=== PATIENT | female | born 1990 | race Caucasian/White ===

== ENCOUNTER 2022-08-28 09:41 | Outpatient (CLI) | payer BC | END 2022-08-28 09:42 | disposition home or self-care (01) | LOC: CSHLAB 09:41 | PROVIDERS: ATTEND Obstetrics & Gynecology | DX: Z01.812 Encounter for preprocedural laboratory examination (principal); Z20.822 Contact with and (suspected) exposure to COVID-19 | CPT/HCPCS: 85014; 85018; 85049; 86780; 86850; 86900; 86901; 87340; U0002 ==

== ENCOUNTER 2022-08-31 05:27 | Inpatient (IN) | payer BC ==
[2022-08-31 06:17] VITALS: BMI 50.8
[2022-08-31] MEDS ORDERED: hydrALAZINE 20 MG/ML VIAL SLOW IVP PRN ×2 (06:40→11:06)
[2022-08-31] MEDS ORDERED: Bicitra 30 ML UDCUP PO PRN (06:40)
[2022-08-31] MEDS ORDERED: Promethazine HCl 25 MG/ML VIAL IM PRN ×2 (06:40→07:20)
[2022-08-31] MEDS ORDERED: Ondansetron PF 4 MG/2 ML Vial IVP PRN ×2 (06:40→07:20)
[2022-08-31] MEDS ORDERED: Famotidine/PF 20 mg/2ml Vial SLOW IVP PRN (06:40)
[2022-08-31] MEDS ORDERED: CEFAZOLIN 2 GM in Sodium Chloride 0.9% 100 ML IVPB SCH (06:45)
[2022-08-31] MEDS ORDERED: Lactated Ringer's 1,000 ML IV SCH (06:45)
[2022-08-31] MEDS ORDERED: NS w/ Oxytocin 30 units 500 ML IV SCH ×2 (06:45→11:06)
[2022-08-31] MEDS ORDERED: Ondansetron PF 4 MG/2 ML Vial ONE (07:02)
[2022-08-31] MEDS ORDERED: Fentanyl 100 MCG/2 ML VIAL ONE (07:02)
[2022-08-31] MEDS ORDERED: Dexamethasone 4 mg/ml Vial ONE (07:02)
[2022-08-31] MEDS ORDERED: Morphine PF 10 MG/10 ML VIAL ONE (07:02)
[2022-08-31] MEDS ORDERED: Oxytocin 10 UNITS/ML VIAL ONE ×2 (07:03→08:13)
[2022-08-31] MEDS ORDERED: Phenylephrine 10 MG/ML VIAL ONE (07:03)
[2022-08-31] MEDS ORDERED: diphenhydrAMINE 50 MG/ML VIAL IVP PRN (07:20)
[2022-08-31] MEDS ORDERED: Naloxone HCl 0.4 mg/ml Vial IV PRN (07:20)
[2022-08-31] MEDS ORDERED: Moisturizing Cream (Eucerin) 113 GM JAR TOP PRN (07:20)
[2022-08-31] MEDS ORDERED: Ondansetron HCl/PF 4 MG/2 ML Vial IVP PRN (07:20)
[2022-08-31] MEDS ORDERED: Promethazine HCl 25 MG SUPP PR PRN (07:20)
[2022-08-31] MEDS ORDERED: Ketorolac Tromethamine 30 MG/ML VIAL IVP PRN (07:20)
[2022-08-31] MEDS ORDERED: Naloxone HCl 0.4 mg/ml Vial IVP PRN ×2 (07:20)
[2022-08-31] MEDS ORDERED: Fentanyl 100 MCG/2 ML VIAL SLOW IVP PRN (07:20)
[2022-08-31] MEDS ORDERED: Meperidine HCl/PF 25 MG/ML VIAL SLOW IVP PRN (07:20)
[2022-08-31] MEDS ORDERED: HYDROmorphone 2 MG/ML VIAL SLOW IVP PRN (07:20)
[2022-08-31] MEDS ORDERED: Ketorolac Tromethamine 30 MG/ML VIAL IVP SCH (07:30)
[2022-08-31] MEDS ORDERED: Communication Order-Pharmacy FS SCH (07:30)
[2022-08-31] MEDS ORDERED: ePHEDrine Sulfate 50 MG/10 ML VIAL ONE (08:25)
[2022-08-31] MEDS ORDERED: Lanolin Ointment 7 GM TUBE TOP PRN (11:06)
[2022-08-31] MEDS ORDERED: Boostrix 0.5 ML (Tdap) VIAL (>/=7 yrs of age) IM ONE (11:06)
[2022-08-31] MEDS ORDERED: diphenhydrAMINE 25 MG CAP PO PRN (11:06)
[2022-08-31] MEDS ORDERED: Bisacodyl 10 MG SUPP PR PRN (11:06)
[2022-08-31] MEDS ORDERED: Prenatal Vitamin 1 TAB PO SCH (11:15)
[2022-08-31] MEDS ORDERED: Docusate 100 MG CAP PO SCH (11:15)
[2022-08-31] MEDS ORDERED: Ferrous Sulfate 325 MG TAB PO SCH (11:15)
[2022-08-31] MEDS ORDERED: Ibuprofen 800 MG TAB PO SCH (14:00)
[2022-08-31] MEDS: Ondansetron PF 4 MG/2 ML Vial IVP PRN (15:05)
[2022-08-31] MEDS: Ketorolac Tromethamine 30 MG/ML VIAL IVP PRN (16:47)
[2022-08-31] MEDS: Ferrous Sulfate 325 MG TAB PO SCH (21:28)
[2022-08-31] MEDS: Docusate 100 MG CAP PO SCH (21:28)
[2022-09-01 04:11] LABS: Hemoglobin 7.7 g/dL (12.0-15.5); Mean Corpuscular HGB CONC 32.9 g/dL (32.0-36.0); Mean Corpuscular Hemoglobin 31.6 pg (27.0-33.0); Mean Corpuscular Volume 95.9 fl (81.6-98.3); Mean Platelet Volume 11.1 fl (7.4-10.4); Platelet Count 192 10x3/uL (150-450); RBC Distribution Width 13.2 % (11.5-14.5); Red Blood Cell (RBC) Count 2.44 10x6/uL (3.90-5.03); White Blood Cell (WBC) Count 11.5 10x3/uL (3.5-10.5)
[2022-09-01] MEDS: HYDROcodone/Acetaminophen 5/325 mg Tablet PO PRN ×3 (05:18→18:39)
[2022-09-01] MEDS: Simethicone Chewable 80 MG TAB PO PRN (05:19)
[2022-09-01] MEDS: Ketorolac Tromethamine 30 MG/ML VIAL IVP PRN ×3 (06:06→21:21)
[2022-09-01] MEDS: Ferrous Sulfate 325 MG TAB PO SCH ×2 (08:16→21:21)
[2022-09-01] MEDS: Docusate 100 MG CAP PO SCH ×2 (08:17→21:21)
[2022-09-01] MEDS: Prenatal Vitamin 1 TAB PO SCH (08:17)
[2022-09-02] MEDS: HYDROcodone/Acetaminophen 5/325 mg Tablet PO PRN ×3 (05:45→21:19)
[2022-09-02] MEDS: Prenatal Vitamin 1 TAB PO SCH (08:36)
[2022-09-02] MEDS: Docusate 100 MG CAP PO SCH ×2 (08:36→21:19)
[2022-09-02] MEDS: Ferrous Sulfate 325 MG TAB PO SCH ×2 (08:37→21:19)
[2022-09-02 08:50] LABS: Hemoglobin 6.5 g/dL (12.0-15.5)
[2022-09-02] MEDS: Ondansetron PF 4 MG/2 ML Vial IVP PRN (12:41)
[2022-09-03] MEDS: Ketorolac Tromethamine 30 MG/ML VIAL IVP PRN (04:34)
[2022-09-03] MEDS: Simethicone Chewable 80 MG TAB PO PRN ×4 (04:40→21:30)
[2022-09-03] MEDS: Ferrous Sulfate 325 MG TAB PO SCH ×2 (09:29→21:30)
[2022-09-03] MEDS: HYDROcodone/Acetaminophen 5/325 mg Tablet PO PRN ×4 (09:29→21:30)
[2022-09-03] MEDS: Prenatal Vitamin 1 TAB PO SCH (09:29)
[2022-09-03] MEDS: Docusate 100 MG CAP PO SCH ×2 (09:29→21:30)
[2022-09-03 09:36] LABS: Hemoglobin 6.7 g/dL (12.0-15.5); Mean Corpuscular HGB CONC 32.1 g/dL (32.0-36.0); Mean Corpuscular Hemoglobin 31.5 pg (27.0-33.0); Mean Corpuscular Volume 98.1 fl (81.6-98.3); Mean Platelet Volume 10.4 fl (7.4-10.4); Platelet Count 161 10x3/uL (150-450); RBC Distribution Width 14.6 % (11.5-14.5); Red Blood Cell (RBC) Count 2.13 10x6/uL (3.90-5.03); White Blood Cell (WBC) Count 8.2 10x3/uL (3.5-10.5)
[2022-09-03] MEDS: Ibuprofen 800 MG TAB PO SCH ×2 (13:19→21:30)
[2022-09-04] MEDS: Ibuprofen 800 MG TAB PO SCH (05:32)
[2022-09-04] MEDS: HYDROcodone/Acetaminophen 5/325 mg Tablet PO PRN (05:32)
[2022-09-04 07:45] LABS: Hemoglobin 7.7 g/dL (12.0-15.5); Mean Corpuscular Hemoglobin 31.7 pg (27.0-33.0); Mean Corpuscular Volume 95.9 fl (81.6-98.3); Platelet Count 157 10x3/uL (150-450); RBC Distribution Width 14.8 % (11.5-14.5); Red Blood Cell (RBC) Count 2.43 10x6/uL (3.90-5.03); White Blood Cell (WBC) Count 6.6 10x3/uL (3.5-10.5)
[2022-09-04 09:05] VITALS: BP 132/69; TEMP 98.8
[2022-09-04] MEDS: Ferrous Sulfate 325 MG TAB PO SCH (10:40)
[2022-09-04] MEDS: Prenatal Vitamin 1 TAB PO SCH (10:40)
[2022-09-04] MEDS: Docusate 100 MG CAP PO SCH (10:40)
[2022-09-06] MEDS ORDERED: Ibuprofen 800 MG TAB PO SCH (06:00)
== END 2022-09-04 12:13 | disposition home or self-care (01) | DRG 784 ==
LOC: CSHLD 05:27 → CSHPP 11:32
PROVIDERS: ADMIT Obstetrics & Gynecology; ATTEND Obstetrics & Gynecology
PROC: 10D00Z1 Extraction of Products of Conception, Low, Open Approach (ICD-10-PCS; principal; 2022-08-31)
PROC: 0UT70ZZ Resection of Bilateral Fallopian Tubes, Open Approach (ICD-10-PCS; 2022-08-31)
PROC: 30233N1 Transfusion of Nonautologous Red Blood Cells into Peripheral Vein, Percutaneous Approach (ICD-10-PCS; 2022-09-02)
DX: O34.211 Maternal care for low transverse scar from previous cesarean delivery (principal); D62 Acute posthemorrhagic anemia; L76.22 Postprocedural hemorrhage of skin and subcutaneous tissue following other procedure; O10.92 Unspecified pre-existing hypertension complicating childbirth; Z68.43 Body mass index [BMI] 50.0-59.9, adult; Z3A.39 39 weeks gestation of pregnancy; Z37.0 Single live birth; E66.8 Other obesity; O99.214 Obesity complicating childbirth; O99.344 Other mental disorders complicating childbirth; F41.9 Anxiety disorder, unspecified; O90.81 Anemia of the puerperium; Y83.8 Other surgical procedures as the cause of abnormal reaction of the patient, or of later complication, without mention of misadventure at the time of the procedure; O90.2 Hematoma of obstetric wound; O24.420 Gestational diabetes mellitus in childbirth, diet controlled; Z80.3 Family history of malignant neoplasm of breast; Z40.03 Encounter for prophylactic removal of fallopian tube(s); Z79.899 Other long term (current) drug therapy; Z79.82 Long term (current) use of aspirin
CPT/HCPCS: 36415; 36416; 36430; 51702; 85014; 85018; 85027; 86850; 86900; 86901; 88302; J1100; J1885; J2274; J2370; J2405; J2590; J3010; J3490; P9016